=== PATIENT | male | born 1975 | race Caucasian/White ===

== ENCOUNTER 2024-02-23 14:13 | Emergency (ER) | payer BC, SELFPAY ==
[2024-02-23 14:17] VITALS: BP 174/126; PULSE 124; RESP 22; TEMP 37.3; O2SAT 97; BMI 32.9
--- NOTE | 2024-02-23 14:18 | ED.GENADULT ---
HPI - General Adult General Chief complaint: Allergic Reaction Stated complaint: allergy to bees, stung on neck Time Seen by Provider: 02/23/24 14:28 Source: patient Mode of arrival: ambulatory Limitations: no limitations History of Present Illness ED Provider: Marian ANDRESON HPI narrative: 48 year old male presents s/p getting stung by a bee 20 minutes ago. Reports he got stung on his chin. He usually has a localized reaction but this time he is having shortness of breath, and feels like his throat is closing. He has not taken anything for this yet. Has an epi pen but has not used it today. Denies nausea, vomiting, abd pain, cp, headache, vision changes, dizziness, weakness, palpitations, diarrhea. Related Data Previous Rx's ?Medication ?Instructions ?Recorded diphenhydramine HCl 25 mg capsule 50 mg (2 x 25 mg) PO BID PRN 02/23/24 (Benadryl) allergic reaction #20 caps epinephrine 0.3 mg/0.3 mL 0.3 mg (0.3 mL) IM Q4H PRN 02/23/24 injection, auto-injector (EpiPen anaphylaxis #2 ea 2-Demario) famotidine 20 mg tablet (Pepcid) 20 mg PO DAILY 14 days #14 tabs 02/23/24 prednisone 20 mg tablet 40 mg (2 x 20 mg) PO DAILY 5 days 02/23/24 #10 tabs Allergies Allergy/AdvReac Type Severity Reaction Status Date / Time bee pollen [bee stings] Allergy Swelling Verified 02/23/24 14:17 Review of Systems Review of Systems: Yes all other systems are reviewed and are negative [facility] Past Medical History Attestation statement: The following information was validated with the patient. Source: old records reviewed and nursing notes reviewed Social History Social History Advance Directives: No Advance Directives Information Provided: No Physical Exam ED Vital Signs: Vital Signs - 24 hr 02/23/24 14:17 02/23/24 14:26 02/23/24 14:30 Temperature 99.2 F Pulse Rate 124 H 109 H 93 Respiratory Rate 22 H 24 H 18 Blood Pressure 174/126 H 164/109 H 201/94 H Pulse Oximetry 97 98 99 Oxygen Delivery Method Room Air Room Air Room Air 02/23/24 14:32 02/23/24 15:51 Temperature 98.3 F Pulse Rate 106 H 102 H Respiratory Rate 18 Blood Pressure 158/91 H 124/89 Pulse Oximetry 92 Oxygen Delivery Method Room Air BMI result Body Mass Index 32.9 VSS Appearance: Alert.? Oriented X3.? No acute distress.?Facial flushing Head: Normocephalic, atraumatic, no step-offs or deformities Eyes: Pupils equal, round and reactive to light.? Pharynx: patient no edema. Normal tongue, tonsils, hard and soft palate, uvula. CVS: Rapid rate normal ryhthm likely sinus tach Respiratory: No respiratory distress.? Breath sounds normal.? Abdomen: Soft and nontender.? Skin: Skin warm and dry.? Normal skin color.? Normal skin turgor.? Extremities: No lower extremity edema.? No calf ttp. 5/5 strength to bilateral upper and lower extremities Neuro: Oriented X 3.? No motor deficit.? No sensory deficit. CN 2-12 intact Course Course Course Narrative: Patient is a 48-year-old male presents emergency department for evaluation. Reports about 10 minutes prior to arrival he was stung by a bee on his neck. He has an EpiPen with him which he has not yet used. He reports primarily localized reactions in the past with extensive swellin of the forearms. He feels numbness tingling sensation to the tongue, a dry cough. feels progressive worsening. Exam: Currently without evidence of angioedema, facial flushing, tachycardic 125, hypertensive 174/126, room air O2 saturation 97%, speaking short brief sentences, intermittently clearing throat Plan: Spoke with electrical discharge machine operator, patient to be brought back to room 17. Ordered for Solu-Medrol, Pepcid, and Benadryl Reevaluation(s) Reevaluation #1: Patient feeling better at this time. Time: 14:50 Reevaluation #2: Patient felling great 96% on RA. Patent airway speaking in full sentences. Controlling secretions well. Advised to return w/ new or worsening sx Paitent to be d/c w/ allergy and immunology referall Medications Administered Discontinued Medications Generic Name Dose Route Start Last Admin Trade Name Freq PRN Reason Stop Dose Admin Diphenhydramine HCl 50 mg 02/23/24 14:19 02/23/24 14:29 Diphenhydramine Hcl 50 Mg/Ml Vial IVPUSH 02/23/24 14:20 50 mg ONCE ONE Administration Epinephrine 0.4 mg 02/23/24 14:31 02/23/24 14:32 Epinephrine 1 Mg/Ml Vial IM 02/23/24 14:32 0.4 mg STAT STA Administration Famotidine 20 mg 02/23/24 14:19 02/23/24 14:29 Famotidine/Pf 20 Mg/2 Ml Vial IVPUSH 02/23/24 14:20 20 mg ONCE ONE Administration Methylprednisolone Sodium Succinate 125 mg 02/23/24 14:19 02/23/24 14:29 Methylprednisolone Sod Succ 125 Mg/2 Ml Vial IVPUSH 02/23/24 14:20 125 mg ONCE ONE Administration Medical Decision Making Medical Decision Making [facility] Narrative: 1430 48 year old male presents w/ allergic reaction to bees PE facial flushing noted and tachycardia. Patent airway. Hx and pe concerning for anaphylaxis vs allergic reaction. No signs of acute threat to airway at this time. Plan- pepcid, benadryl, epi, solumedrol Differential Diagnosis Differential Diagnoses: The differential diagnosis associated with the presentation includes (Hx and pe concerning for anaphylaxis vs allergic reaction. No signs of acute threat to airway at this time. ) Admission/Observation Consideration of admission/observation: Escalation of care including admission/observation considered Critical Care Time Critical Care Time Critical Care Time: Yes Total Critical Care Time: 35 Attestation: I attest to this time spent taking care of the patient, obtaining history, physical, reviewing labs, imaging, speaking to my attending, speaking to specialist. Discharge Plan Discharge Clinical Impression: Allergic reaction, Anaphylaxis Patient Disposition: Home, Self-Care Instructions: General Allergic Reaction (ED), Allergy Testing (ED) Additional Instructions: Take your medications as prescribed. If you were prescribed antibiotics today, it is important that you take your medication to their entirety, do not skip any doses, do not finish them early. Follow-up with your primary care provider this week. Return to the emergency department with new or worsening symptoms. Such as fevers, chills, chest pain, shortness of breath, nausea, vomiting, dizziness, headache, vision changes, lethargy In case of emergency call 911 How to use an EpiPen: ? Place the orange tip against the middle of the outer thigh. ? Swing and push the auto-injector firmly into the thigh until it ?clicks? ? Hold firmly in place for three seconds?count slowly, ?1, 2, 3? An EpiPen has been sent to your pharmacy this should only be used in severe emergency such as inability to breathe trouble speaking, shortness breath or any signs of anaphylaxis as discussed. If he use an EpiPen it is crucial you come in to an emergency department to be evaluated as you can have a rebound effect. Please follow-up with an allergy doctor. Prescriptions: New diphenhydramine HCl [Benadryl] 25 mg capsule 50 mg PO BID PRN (Reason: allergic reaction) Qty: 20 0RF famotidine [Pepcid] 20 mg tablet 20 mg PO DAILY 14 Days Qty: 14 0RF prednisone 20 mg tablet 40 mg PO DAILY 5 Days Qty: 10 0RF epinephrine [EpiPen 2-Demario] 0.3 mg/0.3 mL auto-injector 0.3 mg IM Q4H PRN (Reason: anaphylaxis) Qty: 2 0RF Referrals: Physician,Unknown J [Physician] - 2 days [facility] ([facility] [Outside] - 1 day Print Language: [place] Island[place]
[2024-02-23 14:26] VITALS: BP 164/109; PULSE 109; RESP 24; O2SAT 98
[2024-02-23] MEDS: methylPREDNISolone Sod Succ 125 MG/2 ML VIAL IVPUSH (14:29)
[2024-02-23] MEDS: Famotidine/PF 20 MG/2 ML VIAL IVPUSH (14:29)
[2024-02-23] MEDS: diphenhydrAMINE HCL 50 MG/ML VIAL IVPUSH (14:29)
[2024-02-23 14:30] VITALS: BP 201/94; PULSE 93; RESP 18; O2SAT 99
--- NOTE | 2024-02-23 14:30 | PC.NURSE ---
pt presents to the ED s/p bee sting in chin approximately 20 min [employer] while at work. pt reports allergy to bees. upon ED arrival - pt a&ox4. tachycardic/hypertensive. otherwise vss and up to date. pt currently presents in no apparent respiratory distress. pt able to speak in full/clear sentences w/o difficulty. pt sitting upright in bed. no sob/wob noted. on RA w/o difficulty - SPO2 @ 98%. although pt displays as in no apparent distress, pt reports that it feels like his throat is closing in. 20gIV placed in the right AC - medication administered per provider order. effectiveness pending. plan of care ongoing.
[2024-02-23 14:32] VITALS: BP 158/91; PULSE 106
[2024-02-23] MEDS: EPINEPHrine 1 MG/ML VIAL 0.4 MG IM (14:32)
[2024-02-23 15:51] VITALS: BP 124/89; PULSE 102; RESP 18; TEMP 36.8; O2SAT 92
--- NOTE | 2024-02-23 15:51 | PC.NURSE ---
pt remains on RA in no apparent distress. pt able to speak in full/clear sentences w/o difficulty. no sob/wob noted. respirations even/unlabored. plan of care ongoing. call contreras placed within reach.
[2024-02-23 17:12] VITALS: BP 124/89; PULSE 102; RESP 20; TEMP 36.8; O2SAT 97
== END 2024-02-23 17:13 | disposition home or self-care (01) ==
PROVIDERS: Emergency Provider Student in an Organized Health Care Education/Training Program; PCP Internal Medicine
DX: T63.441A Toxic effect of venom of bees, accidental (unintentional), initial encounter (principal); T78.2XXA Anaphylactic shock, unspecified, initial encounter; X58.XXXA Exposure to other specified factors, initial encounter
CPT/HCPCS: 96372; 96374; 96375; 99283; 99284; J0171; J1200; J2919